=== PATIENT | female | born 1970 | race Caucasian/White ===

== ENCOUNTER → 2018-06-30 | Outpatient (CLI) | payer MEDICARE, OTHER ==
--- NOTE | 2018-06-30 14:28 | US ---
EXAMINATION TYPE: US venous doppler duplex LE RT DATE OF EXAM: 06/30/2018 1:31 PM COMPARISON: NONE CLINICAL HISTORY: 48-year-old female I82.401 Acute embolism and thrombosis of unspecified vein. SIDE PERFORMED: Right TECHNIQUE: The lower extremity deep venous system is examined utilizing real time linear array sonog ric with graded compression, doppler sonography and color-flow sonography. FINDINGS: VESSELS IMAGED: External Iliac Vein (EIV) Common Femoral Vein Deep Femoral Vein Greater Saphenous Vein * Femoral Vein Popliteal Vein Small Saphenous Vein * Proximal Calf Veins (* superficial vessels) Right Leg: Negative for DVT IMPRESSION: No evidence for DVT within the right lower extremity imaged from the groin to the upper calf.
== END | disposition home or self-care (01) ==
LOC: RADUSWWP 13:09
PROVIDERS: ATTEND Family Medicine
DX: I82.401 Acute embolism and thrombosis of unspecified deep veins of right lower extremity (principal)

== ENCOUNTER 2018-07-19 02:40 | Emergency (ER) | payer OTHER, MEDICARE ==
[2018-07-19] MEDS ORDERED: ETOMIDATE 2 MG/ML 10 ML VIAL ONE (02:42)
[2018-07-19] MEDS ORDERED: MIDAZOLAM 1 MG/ML 5 ML VIAL ONE (02:42)
[2018-07-19] MEDS ORDERED: SUCCINYLCHOLINE CHLORIDE VIAL 200 MG/10 ML VIAL IV ONE (02:42)
[2018-07-19 03:11] LABS: Basophils # (A) 0.1 k/uL (0-0.2); Basophils % (A) 1 %; Eosinophils # (A) 0.3 k/uL (0-0.7); Eosinophils % (A) 3 %; HCT 41.7 % (34.0-46.0); HGB 12.8 gm/dL (11.4-16.0); Hypochromasia Slight; Lymphocytes # (A) 2.9 k/uL (1.0-4.8); Lymphocytes % (A) 26 %; MCH 25.3 pg (25.0-35.0); MCHC 30.6 g/dL (31.0-37.0); MCV 82.6 fL (80.0-100.0); Mean Platelet Volume 6.8; Monocytes # (A) 0.5 k/uL (0-1.0); Monocytes % (A) 5 %; Neutrophils % (A) 64 %; Platelet Count 263 k/uL (150-450); RBC 5.05 m/uL (3.80-5.40); RDW 14.4 % (11.5-15.5); WBC 10.9 k/uL (3.8-10.6)
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
[2018-07-19 03:19] LABS: INR 0.9 (<1.2); Partial Thromboplastin Time 23.7 sec (22.0-30.0); Prothrombin Time 9.5 sec (9.0-12.0)
[2018-07-19 03:20] LABS: Glucose,Whole Blood 126 mg/dL (75-99)
[2018-07-19 03:20] LABS: ALT 34 U/L (9-52); AST 40 U/L (14-36); Albumin 4.3 g/dL (3.5-5.0); Alcohol <10 mg/dL; Alkaline Phosphatase 114 U/L (38-126); Amylase 51 U/L (30-110); Anion Gap 10 mmol/L; Blood Urea Nitrogen 16 mg/dL (7-17); Calcium 9.1 mg/dL (8.4-10.2); Carbon Dioxide 23 mmol/L (22-30); Chloride 106 mmol/L (98-107); Glucose 115 mg/dL (74-99); Lipase 61 U/L (23-300); Potassium 5.1 mmol/L (3.5-5.1); Sodium 139 mmol/L (137-145); Total Bilirubin 0.5 mg/dL (0.2-1.3); Total Protein 7.8 g/dL (6.3-8.2)
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
[2018-07-19 03:42] LABS: Creatine Kinase 529 U/L (30-135)
[2018-07-19 03:45] VITALS: BP 199/161; PULSE 112; RESP 17; TEMP 97.9
[2018-07-19] MEDS ORDERED: LABETALOL SYRINGE 5 MG/ML IVP STA (03:54)
[2018-07-19 03:55] LABS: Creatine Kinase MB 2.2 ng/mL (0.0-2.4); Troponin I <0.012 ng/mL (0.000-0.034)
--- NOTE | 2018-07-19 04:08 | CT ---
EXAM: CT Head Without Intravenous Contrast CLINICAL HISTORY: ITS.REASON CT Reason: Pain TECHNIQUE: Axial computed tomography images of the head/brain without intravenous contrast. CTDI is 45.2 mGy and DLP is 1095 mGy-cm. This CT exam was performed using one or more of the following dose reduction techniques: automated exposure control, adjustment of the mA and/or kV according to patient size, and/or use of iterative reconstruction technique. COMPARISON: No relevant prior studies available. FINDINGS: Limitations: Interpretation of this exam is limited without more detailed history. Brain: There is 10 mm thick extra axial hematoma along the left temporal and frontal convexities with mild local mass effect but without midline shift or herniation. Ventricles: Unremarkable. No ventriculomegaly. Bones/joints: 13 mm presumed osteoma in the right ethmoid air cells. Soft tissues: Extensive soft tissue swelling and laceration involving the superior and posterior scalp. Sinuses: Scattered paranasal sinus opacification is nonspecific but may represent sinusitis in the appropriate setting. Mastoid air cells: Unremarkable as visualized. IMPRESSION: 1. Interpretation of this exam is limited without more detailed history. 2. There is 10 mm thick extra axial hematoma along the left temporal and frontal convexities with mild local mass effect but without midline shift or herniation. 3. Scattered paranasal sinus opacification is nonspecific but may represent sinusitis in the appropriate setting. EXAM: CT Cervical Spine Without Intravenous Contrast CLINICAL HISTORY: ITS.REASON CT Reason: Pain TECHNIQUE: Axial computed tomography images of the cervical spine without intravenous contrast. CTDI is 17.5 mGy and DLP is 506.5 mGy-cm. This CT exam was performed using one or more of the following dose reduction techniques: automated exposure control, adjustment of the mA and/or kV according to patient size, and/or use of iterative reconstruction technique. COMPARISON: No relevant prior studies available. FINDINGS: Limitations: Interpretation of this exam is limited without more detailed history. Vertebrae: Unremarkable. No acute fracture. Discs/spinal canal/neural foramina: No acute findings. No spinal canal stenosis. Soft tissues: Laceration in the right neck with extensive subcutaneous emphysema extending into the deep neck spaces and a more focal 2.7 x 3.1 center presumed hematoma posterior to the sternocleidomastoid muscle. Thyroid: 5 mm calcification in the right thyroid lobe. Punctate calcification in the left thyroid lobe. IMPRESSION: 1. Interpretation of this exam is limited without more detailed history. 2. Laceration in the right neck with extensive subcutaneous emphysema extending into the deep neck spaces and a more focal 2.7 x 3.1 center presumed hematoma posterior to the sternocleidomastoid muscle. 3. No evidence of acute fracture. 4. 5 mm calcification in the right thyroid lobe. Punctate calcification in the left thyroid lobe. Further characterization with ultrasound suggested. <MYCVCSECTION> Critical Value Communications 07/19/18 04:11 Call Doctor Regarding Intracranial Hemorrhage, called Dr Meyer on 07/19 04:10 (-05:00)
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
[2018-07-19 04:17] LABS: Appearance,Urine Cloudy (Clear); Bacteria,Urine Occasional /hpf; Bilirubin,Urine Negative (Negative); Blood,Urine Negative (Negative); Color,Urine Yellow; Glucose,Urine (UA) Negative (Negative); Hyaline Casts,Urine 2 /lpf (0-2); Ketones,Urine Negative (Negative); Leukocyte Esterase,Urine Trace (Negative); Mucus,Urine Occasional /hpf; Nitrite,Urine Negative (Negative); Protein,Urine Trace (Negative); Specific Gravity,Urine 1.018 (1.001-1.035); WBC,Urine 2 /hpf (0-5)
[2018-07-19 04:23] LABS: Amphetamine Screen,Urine Detected (NotDetected); Barbiturate Screen,Urine Not Detected (NotDetected); Benzodiazepines Screen,Urine Detected (NotDetected); Cocaine Screen,Urine Not Detected (NotDetected); Methadone Screen, Urine Not Detected (NotDetected); Opiate Screen,Urine Not Detected (NotDetected); Oxycodone Screen, Urine Not Detected (NotDetected); Phencyclidine Screen,Urine Not Detected (NotDetected); Tricyclic Antidepressant,Urine Not Detected (NotDetected); Urn Cannabinoid Scrn Not Detected (NotDetected)
--- NOTE | 2018-07-19 04:24 | CT ---
EXAM: CT Chest With Intravenous Contrast CLINICAL HISTORY: ITS.REASON CT Reason: Pain TECHNIQUE: Axial computed tomography images of the chest with intravenous contrast. CTDI is 0.085 mGy and DLP is 6.4 mGy-cm. This CT exam was performed using one or more of the following dose reduction techniques: automated exposure control, adjustment of the mA and/or kV according to patient size, and/or use of iterative reconstruction technique. COMPARISON: No relevant prior studies available. FINDINGS: Limitations: This is exam is limited by poor contrast enhancement. Lungs: Bibasilar presumed atelectasis. Pleural space: Unremarkable. No pneumothorax. No significant effusion. Heart: Unremarkable. No cardiomegaly. No significant pericardial effusion. Bones/joints: No acute fracture. Soft tissues: Unremarkable. Vasculature: Unremarkable. No thoracic aortic aneurysm. Lymph nodes: Unremarkable. No enlarged lymph nodes. Tubes, lines and devices: The endotracheal tube terminates just above the hilda. IMPRESSION: 1. This is exam is limited by poor contrast enhancement. 2. The endotracheal tube terminates just above the hilda. Recommend pulling back slightly. 3. No evidence of acute traumatic injury within the limitations of poor contrast enhancement and poor vascular evaluation. EXAM: CT Abdomen and Pelvis With Intravenous Contrast CLINICAL HISTORY: ITS.REASON CT Reason: Pain TECHNIQUE: Axial computed tomography images of the abdomen and pelvis with intravenous contrast. This CT exam was performed using one or more of the following dose reduction techniques: automated exposure control, adjustment of the mA and/or kV according to patient size, and/or use of iterative reconstruction technique. COMPARISON: No relevant prior studies available. FINDINGS: Limitations: This is exam is limited by poor contrast enhancement. Lung bases: Unremarkable. No mass. No consolidation. ABDOMEN: Liver: Unremarkable. No mass. Gallbladder and bile ducts: Unremarkable. No calcified stones. No ductal dilation. Pancreas: Unremarkable. No evidence of mass. No ductal dilation. Spleen: Unremarkable. No splenomegaly. Adrenals: Unremarkable. No mass. Kidneys and ureters: Unremarkable. No solid mass. No hydronephrosis. Stomach and bowel: Postoperative changes in the stomach. No obstruction. No mucosal thickening. PELVIS: Appendix: No findings to suggest acute appendicitis. Bladder: Unremarkable. No evidence of mass. Reproductive: Unremarkable as visualized. ABDOMEN and PELVIS: Intraperitoneal space: Unremarkable. No free air. No significant fluid collection. Bones/joints: No acute fracture. Soft tissues: Unremarkable. Vasculature: The inferior vena cava appears collapsed. IVC filter. No abdominal aortic aneurysm. Lymph nodes: Unremarkable. No enlarged lymph nodes. IMPRESSION: 1. This is exam is limited by poor contrast enhancement. 2. The inferior vena cava appears collapsed. This may represent hypotension. 3. IVC filter. 4. No evidence of acute traumatic injury within the limitations of poor contrast enhancement and limited solid organ and vascular evaluation.
== END 2018-07-19 04:04 | disposition other institution (70) ==
LOC: EC 02:40
DX: S06.309A Unspecified focal traumatic brain injury with loss of consciousness of unspecified duration, initial encounter (principal); S01.01XA Laceration without foreign body of scalp, initial encounter; S20.219A Contusion of unspecified front wall of thorax, initial encounter; T14.8XXA Other injury of unspecified body region, initial encounter; R00.0 Tachycardia, unspecified; R40.2430 Glasgow coma scale score 3-8, unspecified time; Z23 Encounter for immunization; V89.2XXA Person injured in unspecified motor-vehicle accident, traffic, initial encounter; Y92.410 Unspecified street and highway as the place of occurrence of the external cause
CPT/HCPCS: 99291; 31500; 96374; 90471; 36415; 86900; 86901; 80053; 82150; 82550; 82553; 83605; 83690; 84484; 85025; 85610; 85730; 86850; 81001; 81025; 80306; 80320; 72170; 71045; 72125; 70450; 71260; 74177; Q9967

== ENCOUNTER 2018-09-05 22:12 | Emergency (ER) | payer MEDICARE, OTHER ==
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
[2018-09-05 23:25] LABS: Anisocytosis Slight; Hypochromasia Moderate
[2018-09-05 23:27] LABS: Anion Gap 6 mmol/L; Blood Urea Nitrogen 18 mg/dL (7-17); Calcium 8.2 mg/dL (8.4-10.2); Carbon Dioxide 26 mmol/L (22-30); Chloride 104 mmol/L (98-107); Glucose 81 mg/dL (74-99); Potassium 4.4 mmol/L (3.5-5.1); Sodium 136 mmol/L (137-145)
[2018-09-05 23:35] LABS: INR 0.9 (<1.2); Prothrombin Time 9.7 sec (9.0-12.0)
[2018-09-05 23:45] LABS: HCT 33.3 % (34.0-46.0); HGB 10.2 gm/dL (11.4-16.0); MCH 25.7 pg (25.0-35.0); MCHC 30.6 g/dL (31.0-37.0); MCV 83.8 fL (80.0-100.0); Mean Platelet Volume 8.3; Platelet Count 244 k/uL (150-450); RBC 3.98 m/uL (3.80-5.40); RDW 15.8 % (11.5-15.5); WBC 4.5 k/uL (3.8-10.6)
--- NOTE | 2018-09-05 23:48 | CT ---
EXAM: CT Head Without Intravenous Contrast CLINICAL HISTORY: ITS.REASON CT Reason: Pain TECHNIQUE: Axial computed tomography images of the head/brain without intravenous contrast. This CT exam was performed using one or more of the following dose reduction techniques: automated exposure control, adjustment of the mA and/or kV according to patient size, and/or use of iterative reconstruction technique. COMPARISON: No relevant prior studies available. FINDINGS: Brain: No hemorrhage. No edema. Ventricles: Unremarkable. No ventriculomegaly. Bones/joints: No acute fracture. Soft tissues: Unremarkable. Sinuses: No fluid levels. Mastoid air cells: Unremarkable as visualized. No mastoid effusion. IMPRESSION: No acute intracranial findings
[2018-09-05 23:56] LABS: Partial Thromboplastin Time 18.1 sec (22.0-30.0)
[2018-09-06 00:08] LABS: Band Neutrophils % 3 %; Eosinophils # (M) 0.23 k/uL (0-0.7); Lymphocytes # (M) 1.62 k/uL (1.0-4.8); Monocytes # (M) 0.72 k/uL (0-1.0); Neutrophils % (M) 40 %; Nucleated Red Blood Cells 0 /100 WBC (0-0); Total Cells Counted 100
[2018-09-06 00:54] VITALS: BP 117/85; PULSE 79; RESP 19; TEMP 98
== END 2018-09-06 00:53 | disposition home or self-care (01) ==
LOC: EC 22:12
DX: R20.2 Paresthesia of skin (principal); R40.0 Somnolence; F17.200 Nicotine dependence, unspecified, uncomplicated; Z88.0 Allergy status to penicillin; Z88.6 Allergy status to analgesic agent; Z79.01 Long term (current) use of anticoagulants; Z79.899 Other long term (current) drug therapy; Z86.14 Personal history of Methicillin resistant Staphylococcus aureus infection; Z87.820 Personal history of traumatic brain injury
CPT/HCPCS: 36415; 70450; 80048; 85025; 85610; 85730; 99284

== ENCOUNTER 2018-09-13 22:08 | Emergency (ER) | payer MEDICARE, OTHER ==
[2018-09-13 23:21] LABS: Basophils % (A) 1 %; Eosinophils # (A) 0.3 k/uL (0-0.7); Eosinophils % (A) 6 %; HCT 33.1 % (34.0-46.0); HGB 10.2 gm/dL (11.4-16.0); Hypochromasia Marked; Lymphocytes # (A) 2.2 k/uL (1.0-4.8); Lymphocytes % (A) 37 %; MCH 25.3 pg (25.0-35.0); MCHC 30.8 g/dL (31.0-37.0); Monocytes # (A) 0.7 k/uL (0-1.0); Monocytes % (A) 11 %; Neutrophils # (A) 2.5 k/uL (1.3-7.7); Neutrophils % (A) 43 %; Platelet Count 238 k/uL (150-450); RBC 4.04 m/uL (3.80-5.40); RDW 15.7 % (11.5-15.5); WBC 5.8 k/uL (3.8-10.6)
[2018-09-13 23:34] LABS: ALT 10 U/L (9-52); AST 15 U/L (14-36); Albumin 3.1 g/dL (3.5-5.0); Alkaline Phosphatase 80 U/L (38-126); Anion Gap 5 mmol/L; Blood Urea Nitrogen 15 mg/dL (7-17); Calcium 8.3 mg/dL (8.4-10.2); Carbon Dioxide 29 mmol/L (22-30); Chloride 103 mmol/L (98-107); Glucose 81 mg/dL (74-99); Potassium 4.5 mmol/L (3.5-5.1); Sodium 137 mmol/L (137-145); Total Bilirubin 0.2 mg/dL (0.2-1.3); Total Protein 6.2 g/dL (6.3-8.2)
--- NOTE | 2018-09-13 23:39 | US ---
EXAM: US Duplex Bilateral Lower Extremity Veins CLINICAL HISTORY: ITS.REASON US Reason: Pain TECHNIQUE: Real-time duplex ultrasound scan of the bilateral lower extremity veins integrating B-mode two-dimensional vascular structure, Doppler spectral analysis, color flow Doppler imaging and compression. COMPARISON: None. FINDINGS: Right deep veins: Unremarkable. No DVT in the right common femoral, femoral, proximal deep femoral or popliteal veins. The veins demonstrate normal color flow, are normally compressible, with normal phasic flow and/or augmentation response. Right superficial veins: Unremarkable. No thrombus in the visualized right great saphenous vein. Left deep veins: Unremarkable. No DVT in the left common femoral, femoral, proximal deep femoral or popliteal veins. The veins demonstrate normal color flow, are normally compressible, with normal phasic flow and/or augmentation response. Left superficial veins: Unremarkable. No thrombus in the visualized left great saphenous vein. Soft tissues: No acute findings. No popliteal cyst. IMPRESSION: No evidence of deep vein thrombosis of the right or left lower extremity.
[2018-09-13 23:40] LABS: INR 0.9 (<1.2); Partial Thromboplastin Time 26.3 sec (22.0-30.0); Prothrombin Time 9.8 sec (9.0-12.0)
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
[2018-09-14 00:29] VITALS: BP 102/71; PULSE 80; RESP 18; TEMP 98.1
== END 2018-09-14 00:44 | disposition home or self-care (01) ==
LOC: EC 22:08
DX: R60.0 Localized edema (principal); F17.200 Nicotine dependence, unspecified, uncomplicated; Z86.718 Personal history of other venous thrombosis and embolism; Z86.14 Personal history of Methicillin resistant Staphylococcus aureus infection; Z79.01 Long term (current) use of anticoagulants; Z79.891 Long term (current) use of opiate analgesic; Z79.899 Other long term (current) drug therapy; Z88.0 Allergy status to penicillin; Z88.6 Allergy status to analgesic agent
CPT/HCPCS: 36415; 80053; 83880; 85025; 85610; 85730; 93005; 93970; 99284

== ENCOUNTER 2019-04-02 17:36 | Emergency (ER) | payer MEDICARE, OTHER ==
[2019-04-02] MEDS ORDERED: diphenhydrAMINE 50 MG/ML 1 ML VIAL IVP STA (18:10)
[2019-04-02] MEDS ORDERED: MORPHINE SULFATE 4 MG/ML SYRINGE IVP STA (18:10)
[2019-04-02] MEDS ORDERED: METOCLOPRAMIDE 5 MG/ML 2 ML VIAL IVP STA (18:11)
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
[2019-04-02] MEDS ORDERED: KETOROLAC 30 MG/ML 1 ML VIAL IVP STA (19:10)
[2019-04-02 19:40] VITALS: BP 102/58; PULSE 87; RESP 16; TEMP 98
== END 2019-04-02 19:39 | disposition home or self-care (01) ==
LOC: EC 17:36
DX: R51 Headache (principal); R11.2 Nausea with vomiting, unspecified; K13.29 Other disturbances of oral epithelium, including tongue; F17.200 Nicotine dependence, unspecified, uncomplicated; Z88.0 Allergy status to penicillin; Z88.6 Allergy status to analgesic agent; Z86.79 Personal history of other diseases of the circulatory system; Z87.828 Personal history of other (healed) physical injury and trauma; Z86.14 Personal history of Methicillin resistant Staphylococcus aureus infection
CPT/HCPCS: 70450; 96374; 96375 ×3; 99284; J2270; J1200; J2765; J1885

== ENCOUNTER 2019-12-10 19:23 | Emergency (ER) | payer MEDICARE, OTHER ==
--- NOTE | 2019-12-10 19:42 | ED ---
Extremity Problem HPI - General Chief complaint: Extremity Problem,Nontraumatic Stated complaint: Poss R Leg Bloodclott Time Seen by Provider: 12/10/19 19:36 Source: patient, RN notes reviewed, old records reviewed Mode of arrival: wheelchair - History of Present Illness Initial comments: Patient is a pleasant 49-year-old female presents emergency room today with complaint of right leg pain and swelling for the past day. She reports she's had history of blood clots in the past and is maintained on several toe. Patient states that she started to have this worsening pain and then decided to wear compression stockings to see if this would help. She states that she had a history of PEs and blood clots in the past, and has been on several toe for many years. - Related Data Home Medications Medication Instructions Recorded Confirmed Acetaminophen [Tylenol] 325 mg PO Q4H PRN 09/05/18 09/13/18 Divalproex Sodium 1,000 mg PO HS 09/05/18 09/13/18 Divalproex Sodium 500 mg PO BID 09/05/18 09/13/18 Pantoprazole Sodium [Protonix] 40 mg PO DAILY 09/05/18 09/13/18 Rivaroxaban [Xarelto] 10 mg PO DAILY 09/05/18 09/13/18 diphenhydrAMINE HCL [Benadryl] 25 mg PO HS PRN 09/05/18 09/13/18 risperiDONE [RisperDAL] 2 mg PO BID 09/05/18 09/13/18 Buprenorphine HCl/Naloxone HCl 0.5 film SL DAILY 09/13/18 09/13/18 [Suboxone 8 mg-2 mg Sl Film] Previous Rx's Medication Instructions Recorded Furosemide [Lasix] 20 mg PO BID #6 tablet 09/14/18 Allergies Allergy/AdvReac Type Severity Reaction Status Date / Time Penicillins Allergy Rash/Hives Verified 12/10/19 19:31 ketorolac [From Toradol] AdvReac Hallucinati Verified 12/10/19 19:31 ons Review of Systems ROS Statement: Those systems with pertinent positive or pertinent negative responses have been documented in the HPI. ROS Other: All systems not noted in ROS Statement are negative. Past Medical History Past Medical History: Asthma Additional Past Medical History / Comment(s): Unable to obtain due to intubated status History of Any Multi-Drug Resistant Organisms: MRSA Date of last positivie culture/infection: 2015 MDRO Source:: neck Past Surgical History: Adenoidectomy, Tonsillectomy Additional Past Surgical History / Comment(s): Gastric bypass, brain sx Past Psychological History: No Psychological Hx Reported Smoking Status: Current every day smoker Past Alcohol Use History: None Reported Past Drug Use History: None Reported General Exam - General Exam Comments Initial Comments: 49-year-old female. Alert and oriented. No distress. General appearance: alert, in no apparent distress Head exam: Present: atraumatic, normocephalic, normal inspection ENT exam: Present: normal exam Neck exam: Present: normal inspection. Absent: tenderness, meningismus, lym phadenopathy Respiratory exam: Present: normal lung sounds bilaterally. Absent: respiratory distress, wheezes, rales, rhonchi, stridor Cardiovascular Exam: Present: regular rate, normal rhythm, normal heart sounds. Absent: systolic murmur, diastolic murmur, rubs, gallop, clicks GI/Abdominal exam: Present: soft Extremities exam: Present: normal inspection, full ROM, normal capillary refill. Absent: tenderness, pedal edema, joint swelling, calf tenderness Right Knee exam: Present: normal inspection, full ROM Lower Leg exam: Present: normal inspection, full ROM, swelling, abrasion (Patient has swelling and tenderness to the right lower leg. Evidence of varicose veins noted.) Ankle exam: Present: normal inspection, full ROM Foot/Toe exam: Present: normal inspection, full ROM Back exam: Present: normal inspection Neurological exam: Present: alert, oriented X3, CN II-XII intact Psychiatric exam: Present: normal affect, normal mood Course Vital Signs 12/10/19 12/10/19 19:26 21:11 Temperature 98.3 F 98.1 F Pulse Rate 104 H 84 Respiratory 18 16 Rate Blood Pressure 137/78 115/101 O2 Sat by Pulse 99 97 Oximetry Medical Decision Making - Medical Decision Making 49-year-old female presents emergency room today with 1 day of right lower extremity swelling and pain in the calf. Patient reports history of DVTs. She is wearing compression stockings. On exam she does have some noted there close veins and swelling to the leg. Today her ultrasound was completed and negative for DVT. There is no overlying skin changes. No concern for cellulitis. No hx of trauma to the leg. I discussed the Patient may need to repeat ultrasound of the next few days and following up with her primary care doctor if symptoms don't diminished despite wearing compression stockings to be feet up and pau vated. Patient is agreeable to treatment plan will comply. Return parameters were discussed. - Radiology Data Radiology results: report reviewed Ultrasound is negative for DVT in the right lower extremity. Disposition Clinical Impression: Swelling of lower leg Disposition: HOME SELF-CARE Condition: Good Instructions (If sedation given, give patient instructions): Leg Edema (ED) Additional Instructions: Please follow up with family doctor if symptoms have not improved over the next two days. Please return to the emergency room if your symptoms increase or worsen or for any other concerns. Is patient prescribed a controlled substance at d/c from ED?: No Referrals: Marina Jacobo DO [Primary Care Provider] - 1-2 days Time of Disposition: 21:20
--- NOTE | 2019-12-10 21:00 | US ---
EXAMINATION TYPE: US venous doppler duplex LE RT DATE OF EXAM: 12/10/2019 8:43 PM COMPARISON: US 2019 CLINICAL HISTORY: Pain x 2 days. Hx DVT and PE. Patient takes Xarelto. Hx knee surgery. SIDE PERFORMED: Right TECHNIQUE: The lower extremity deep venous system is examined utilizing real time linear array sonog ric with graded compression, doppler sonography and color-flow sonography. VESSELS IMAGED: External Iliac Vein (EIV) Common Femoral Vein Deep Femoral Vein Greater Saphenous Vein * Femoral Vein Popliteal Vein Small Saphenous Vein * Proximal Calf Veins (* superficial vessels) DESCRIPTION: High-resolution multiplanar grayscale and color Doppler and pulsed wave Doppler imaging was obtained with physiologic maneuvers. IMPRESSION: Negative for DVT, right lower extremity.
[2019-12-10 21:12] VITALS: BP 115/101; PULSE 84; RESP 16; TEMP 98.1
== END 2019-12-10 21:25 | disposition home or self-care (01) ==
LOC: EC 19:23
DX: M79.89 Other specified soft tissue disorders (principal); F17.200 Nicotine dependence, unspecified, uncomplicated; Z88.0 Allergy status to penicillin; Z88.6 Allergy status to analgesic agent; Z86.718 Personal history of other venous thrombosis and embolism; Z86.711 Personal history of pulmonary embolism; Z86.14 Personal history of Methicillin resistant Staphylococcus aureus infection
CPT/HCPCS: 99284

== ENCOUNTER 2021-10-23 10:48 | Emergency (ER) | payer MEDICARE, OTHER ==
[2021-10-23 11:58] VITALS: RESP 18
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
[2021-10-23] MEDS ORDERED: ACET/COD 300 MG/30 MG STARTER PACK 6 TAB BTL PO STA (12:26)
[2021-10-23 13:34] VITALS: TEMP 97.8
[2021-10-23] MEDS ORDERED: HYDROmorphone 0.5 MG/0.5 ML SYRINGE IVP STA (13:35)
[2021-10-23 13:47] VITALS: BP 150/98; PULSE 71
== END 2021-10-23 14:11 | disposition home or self-care (01) ==
LOC: EC 10:48
DX: S42.001A Fracture of unspecified part of right clavicle, initial encounter for closed fracture (principal); F17.200 Nicotine dependence, unspecified, uncomplicated; J45.909 Unspecified asthma, uncomplicated; Z88.0 Allergy status to penicillin; Z88.6 Allergy status to analgesic agent; V28.4XXA Motorcycle driver injured in noncollision transport accident in traffic accident, initial encounter
CPT/HCPCS: 73030; 72125; 70450; 99284; 96374; J1170

== ENCOUNTER 2023-05-01 00:34 | Emergency (ER) | payer MEDICARE, OTHER ==
[2023-05-01] MEDS ORDERED: MORPHINE SULFATE 2 MG/ML SYRINGE IV STA (00:55)
[2023-05-01 01:00] VITALS: RESP 18; TEMP 97.6
[2023-05-01 01:15] LABS: Anisocytosis Slight; Basophils # (A) 0.1 k/uL (0-0.2); Basophils % (A) 1 %; Eosinophils # (A) 0.4 k/uL (0-0.7); Eosinophils % (A) 6 %; HCT 37.7 % (34.0-46.0); HGB 11.5 gm/dL (11.4-16.0); Hypochromasia Marked; Lymphocytes # (A) 2.3 k/uL (1.0-4.8); Lymphocytes % (A) 34 %; MCH 24.2 pg (25.0-35.0); MCHC 30.5 g/dL (31.0-37.0); MCV 79.4 fL (80.0-100.0); Microcytosis Slight; Monocytes # (A) 0.3 k/uL (0-1.0); Monocytes % (A) 4 %; Neutrophils # (A) 3.7 k/uL (1.3-7.7); Neutrophils % (A) 54 %; Platelet Count 362 k/uL (150-450); RBC 4.74 m/uL (3.80-5.40); RDW 17.3 % (11.5-15.5); WBC 6.8 k/uL (3.8-10.6)
[2023-05-01 01:24] LABS: ALT 26 U/L (4-34); AST 75 U/L (14-36); African American GFR (CKD) >90 (>60 ml/min/1.73 sqM); Albumin 4.6 g/dL (3.5-5.0); Alkaline Phosphatase 95 U/L (38-126); Blood Urea Nitrogen 21 mg/dL (7-17); Calcium 8.9 mg/dL (8.4-10.2); Carbon Dioxide 21 mmol/L (22-30); Chloride 107 mmol/L (98-107); Glucose 83 mg/dL (74-99); Non-African American GFR(CKD) >90 (>60 ml/min/1.73 sqM); Total Bilirubin 1.5 mg/dL (0.2-1.3); Total Protein 8.8 g/dL (6.3-8.2)
--- NOTE | 2023-05-01 01:26 | ED ---
General Adult HPI - General Chief complaint: Fall Stated complaint: Fall Time Seen by Provider: 05/01/23 00:42 Source: patient, RN notes reviewed, old records reviewed Mode of arrival: wheelchair Limitations: no limitations - History of Present Illness Initial comments: Patient is a 53-year-old female presents emergency Department after slip and fall. Patient is on Coumadin. Patient was a fall from standing. Injury occurred prior to arrival. States she slipped on slippery floor at a gas station when she fell forward striking above her right eyebrow. Denies loss of conscious. Denies blurry vision. In laboratory afterwards. Chronic back pain. His no other acute complaints at this time. Presents for further evaluation of a concern for possible head injury. - Related Data Home Medications Medication Instructions Recorded Confirmed Acetaminophen [Tylenol] 325 mg PO Q4H PRN 09/05/18 09/13/18 Divalproex Sodium 1,000 mg PO HS 09/05/18 09/13/18 Divalproex Sodium 500 mg PO BID 09/05/18 09/13/18 Pantoprazole Sodium [Protonix] 40 mg PO DAILY 09/05/18 09/13/18 Rivaroxaban [Xarelto] 10 mg PO DAILY 09/05/18 09/13/18 diphenhydrAMINE HCL [Benadryl] 25 mg PO HS PRN 09/05/18 09/13/18 risperiDONE [RisperDAL] 2 mg PO BID 09/05/18 09/13/18 Buprenorphine HCl/Naloxone HCl 0.5 film SL DAILY 09/13/18 09/13/18 [Suboxone 8 mg-2 mg Sl Film] Previous Rx's Medication Instructions Recorded Furosemide [Lasix] 20 mg PO BID #6 tablet 09/14/18 Allergies Allergy/AdvReac Type Severity Reaction Status Date / Time Penicillins Allergy Rash/Hives Verified 05/01/23 00:40 ketorolac [From Toradol] AdvReac Hallucinati Verified 05/01/23 00:40 ons Review of Systems ROS Statement: Those systems with pertinent positive or pertinent negative responses have been documented in the HPI. Review of Systems: CONST: Denies fever EYES: Denies blurry vision ENT: Denies nasal congestion C/V: Denies Chest pain RESP: Denies shortness of breath GI: Denies abdominal pain : Denies dysuria SKIN: Endorses forehead bruise MSK: Endorses forehead pain NEURO: Denies headache ROS Other: All systems not noted in ROS Statement are negative. Past Medical History Past Medical History: Asthma Additional Past Medical History / Comment(s): Unable to obtain due to intubated status, Traumatic brain injury 2016. History of Any Multi-Drug Resistant Organisms: MRSA Date of last positivie culture/infection: 2015 MDRO Source:: neck Past Surgical History: Adenoidectomy, Tonsillectomy Additional Past Surgical History / Comment(s): Gastric bypass, brain sx, back surgery Past Psychological History: No Psychological Hx Reported Smoking Status: Current every day smoker Past Alcohol Use History: None Reported Past Drug Use History: None Reported General Exam - General Exam Comments Initial Comments: General: Appears in no acute distress. HEAD: Small contusion above the right eyebrow. EYES: PERRLA, EOMI, conjunctiva normal, no discharge. Pupils are 3 mm equal bilaterally. ENT: Hearing grossly intact, normal oropharynx. RESPIRATORY: Clear breath sounds bilaterally. No wheezes, rales, or rhonchi. C/V: Regular rate and rhythm. S1 and S2 auscultated, no edema, peripheral pulses 2+ and intact throughout ABD: Abd is soft, nontender, nondistended EXT: Normal range of motion, no obvious deformity SKIN: No rashes or lesions observed on exposed skin. NEURO: Alert and oriented 4. GCS 15. No focal deficits. Cranial nerves II through XII are intact. Limitations: no limitations Course Vital Signs 05/01/23 05/01/23 00:36 01:23 Temperature 97.6 F Pulse Rate 96 92 Respiratory 18 18 Rate Blood Pressure 171/115 152/91 O2 Sat by Pulse 100 97 Oximetry Medical Decision Making - Medical Decision Making Was pt. sent in by a medical professional or institution (, PA, FINANCIAL PLANNING ANALYST, urgent care, hospital, or retirement...) When possible be specific @ -No Did you speak to anyone other than the patient for history (EMS, parent, family, police, friend...)? What history was obtained from this source @ -No Did you review nursing and triage notes (agree or disagree)? Why? @ -I reviewed and agree with nursing and triage notes Were old charts reviewed (outside hosp., previous admission, EMS record, old EKG, old radiological studies, urgent care reports/EKG's, retirement records)? Report findings @ -No old charts were reviewed Differential Diagnosis (chest pain, altered mental status, abdominal pain women, abdominal pain men, vaginal bleeding, weakness, fever, dyspnea, syncope, headache, dizziness, GI bleed, back pain, seizure, CVA, palpatations, mental health, musculoskeletal)? @ -Fall, intracranial injury, intracranial bleed, contusion. This list is not all inclusive. EKG interpreted by me (3pts min.). @ -As above X-rays interpreted by me (1pt min.). @ -Chest x-ray and pelvis x-ray shows no obvious acute findings. CT interpreted by me (1pt min.). @ -CT brain, facial bones negative for any obvious traumatic injury. U/S interpreted by me (1pt. min.). @ -None done What testing was considered but not performed or refused? (CT, X-rays, U/S, labs)? Why? @ -None What meds were considered but not given or refused? Why? @ -None Did you discuss the management of the patient with other professionals (professionals i.e. , PA, FINANCIAL PLANNING ANALYST, lab, RT, psych nurse, secondary social studies teacher, retail banker, teacher, fire officer, bottle caser)? Give summary @ -No Was smoking cessation discussed for >3mins.? @ -No Was critical care preformed (if so, how long)? @ -No Were there social determinants of health that impacted care today? How? (Homelessness, low income, unemployed, alcoholism, drug addiction, transportation, low edu. Level, literacy, decrease access to med. care, senior living, rehab)? @ -No Was there de-escalation of care discussed even if they declined (Discuss DNR or withdrawal of care, Hospice)? DNR status @ -No What co-morbidities impacted this encounter? (DM, HTN, Smoking, COPD, CAD, Canc er, CVA, ARF, Chemo, Hep., AIDS, mental health diagnosis, sleep apnea, morbid obesity)? @ -None Was patient admitted / discharged? Hospital course, mention meds given and route, prescriptions, significant lab abnormalities, going to OR and other pertinent info. @ -Based on patient's presentation and physical exam, she does not meet criteria for a trauma activation. She is a fall from standing on blood thinners with no loss of consciousness and is acting normally. However we will obtain CT brain, facial bones. Also obtain basic trauma labs as well as PT/INR. Patient agreement this plan. She'll be given a small dose of IV analgesic medications. Vital signs are within acceptable limits. EKG showed no signs of ischemia.Patient's imaging negative for any obvious traumatic injury. Labs are remarkable for his subtherapeutic INR. I did the patient. She is resting comfortably. She'll be discharged home at this time. She was in agreement this plan. I instructed the patient to follow up with their PCP in the next 1-3 days. I explained that the patient should return to the emergency department if they experience any worsening symptoms. Strict return precautions were discussed with the patient. The patient expressed understanding of these instructions. I answered all questions that the patient had. The patient was discharged home in good condition with their prescriptions and follow up information. Undiagnosed new problem with uncertain prognosis? @ -No Drug Therapy requiring intensive monitoring for toxicity (Heparin, Nitro, Insulin, Cardizem)? @ -No Were any procedures done? @ -No Diagnosis/symptom? @ -Mechanical fall, forehead contusion, subtherapeutic INR Acute, or Chronic, or Acute on Chronic? @ -Acute Uncomplicated (without systemic symptoms) or Complicated (systemic symptoms)? @ -Uncomplicated Side effects of treatment? @ -none Exacerbation, Progression, or Severe Exacerbation] @ -no Poses a threat to life or bodily function? @ -no - Lab Data Result diagrams: 05/01/23 01:00 05/01/23 01:00 Lab Results 05/01/23 05/01/23 05/01/23 Range/Units 01:00 01:00 01:00 WBC 6.8 (3.8-10.6) k/uL RBC 4.74 (3.80-5.40) m/uL Hgb 11.5 (11.4-16.0) gm/dL Hct 37.7 (34.0-46.0) % MCV 79.4 L (80.0-100.0) fL MCH 24.2 L (25.0-35.0) pg MCHC 30.5 L (31.0-37.0) g/dL RDW 17.3 H (11.5-15.5) % Plt Count 362 (150-450) k/uL MPV 8.0 Neutrophils % 54 % Lymphocytes % 34 % Monocytes % 4 % Eosinophils % 6 % Basophils % 1 % Neutrophils # 3.7 (1.3-7.7) k/uL Lymphocytes # 2.3 (1.0-4.8) k/uL Monocytes # 0.3 (0-1.0) k/uL Eosinophils # 0.4 (0-0.7) k/uL Basophils # 0.1 (0-0.2) k/uL Hypochromasia Marked Anisocytosis Slight Microcytosis Slight PT 12.4 (10.0-12.5) sec INR 1.2 H (<1.2) APTT 29.7 (22.0-30.0) sec Sodium 136 L (137-145) mmol/L Potassium (3.5-5.1) mmol/L Chloride 107 (98-107) mmol/L Carbon Dioxide 21 L (22-30) mmol/L Anion Gap 8 mmol/L BUN 21 H (7-17) mg/dL Creatinine 0.62 (0.52-1.04) mg/dL Est GFR (CKD-EPI)AfAm >90 (>60 ml/min/1.73 sqM) Est GFR (CKD-EPI)NonAf >90 (>60 ml/min/1.73 sqM) Glucose 83 (74-99) mg/dL Calcium 8.9 (8.4-10.2) mg/dL Total Bilirubin 1.5 H (0.2-1.3) mg/dL AST 75 H (14-36) U/L ALT 26 (4-34) U/L Alkaline Phosphatase 95 (38-126) U/L Total Protein 8.8 H (6.3-8.2) g/dL Albumin 4.6 (3.5-5.0) g/dL - EKG Data -: EKG Interpreted by Me EKG Comments: 12-lead Electrocardiogram Interpretation Note EKG was reviewed and interpreted by myself. 12-lead ECG performed at 0120 is interpreted by me as revealing normal sinus rhythm at a rate of 91 beats per minute. Sap[place] is normal. OH interval is 181 ms, QRS duration is 89 ms, QTc is 400 ms.. There were no ST or T wave abnormalities to suggest myocardial ischemia or injury. R wave progression across the precordium was satisfactory. By my interpretation this EKG is non-diagnostic for acute ischemia. Disposition Clinical Impression: Fall, Forehead contusion, Subtherapeutic international normalized ratio (INR) Disposition: HOME SELF-CARE Condition: Good Instructions (If sedation given, give patient instructions): Fall Prevention (ED) Is patient prescribed a controlled substance at d/c from ED?: No Referrals: Marina Jacobo DO [Primary Care Provider] - 1-2 days Time of Disposition: 03:25
[2023-05-01 01:30] LABS: Anion Gap 8 mmol/L; Sodium 136 mmol/L (137-145)
[2023-05-01 01:50] VITALS: BP 152/91; PULSE 92
[2023-05-01 02:13] LABS: INR 1.2 (<1.2); Partial Thromboplastin Time 29.7 sec (22.0-30.0); Prothrombin Time 12.4 sec (10.0-12.5)
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
== END 2023-05-01 03:36 | disposition home or self-care (01) ==
LOC: EC 00:34
DX: S42.001A Fracture of unspecified part of right clavicle, initial encounter for closed fracture (principal); S00.83XA Contusion of other part of head, initial encounter; R79.1 Abnormal coagulation profile; J45.909 Unspecified asthma, uncomplicated; F17.200 Nicotine dependence, unspecified, uncomplicated; Z88.0 Allergy status to penicillin; Z88.6 Allergy status to analgesic agent; W01.0XXA Fall on same level from slipping, tripping and stumbling without subsequent striking against object, initial encounter
CPT/HCPCS: 36415; 93005; 80053; 85025; 85610; 85730; 72170; 71045; 70486; 70450; 99285; 96374; J2270